=== PATIENT | male | born 1950 | race Caucasian/White ===

== ENCOUNTER → 2019-03-30 | Day surgery (SDC) | payer MEDICARE, OTHER ==
--- NOTE | 2019-03-22 18:02 | Diagnostic Imaging Report ---
EXAMINATION: CHEST 2 VIEWS INDICATION: ^PRE ADMIT COMPARISON: None FINDINGS: PA and lateral views TUBES and LINES: None. LUNGS: Lungs are well inflated. There is no evidence of pneumonia or pulmonary edema. PLEURA: No pleural effusion or pneumothorax. HEART AND MEDIASTINUM: The cardiomediastinal silhouette is unremarkable. BONES AND SOFT TISSUES: No acute osseous lesion. Soft tissues are unremarkable. UPPER ABDOMEN: No free air under the diaphragm. IMPRESSION: No acute thoracic abnormality. Signed by: Dr. David Clements MD on 03/22/2019 5:59 PM
[2019-03-22 18:26] LABS: BASOPHILS % 0.1 % (0.0-1.0); EOSINOPHILS % 0.4 % (0.0-6.0); HEMATOCRIT 36.4 % (38.2-49.6); HEMOGLOBIN 12.5 g/dL (14.0-18.0); LYMPHOCYTES % 12.6 % (18.0-39.1); MEAN CORPUSCULAR HEMOGLOBIN 32.7 pg (28-32); MEAN CORPUSCULAR HGB CONC 34.3 g/dL (31-35); MEAN CORPUSCULAR VOLUME 95.3 fL (81-99); MONOCYTES # (AUTO) 0.5 (0.2-0.8); MONOCYTES % 5.7 % (4.4-11.3); NEUTROPHILS # (AUTO) 6.6 (2.1-6.9); NEUTROPHILS % 81.1 % (38.7-80.0); PLATELET COUNT 206 x10e3/uL (140-360); RED BLOOD COUNT 3.82 x10e6/uL (4.3-5.7); RED CELL DISTRIBUTION WIDTH 13.3 % (11.7-14.4)
[~2019-03-30] MED LIST: ACYCLOVIR200 MG PO; AZOR 10-40 MG1 EACH; BUPIVACAINE HCL 0.5% INJ 30 ML VIAL INJ ONE; CEFAZOLIN SOD 1 GM/NS 50ML 50 ML IV ONE; CLONIDINE HCL0.2 MG; COREG12.5 MG PO; DEXAMETHASONE SOD PHOS INJ 4 MG/ML VIAL ONE; FENTANYL CITRATE/PF 100MCG/2 ML INJ ONE; FERROUS SULFAT325 M1; FLOMAX0.4 MG PO; GLYCOPYRROLATE INJ 1MG/ 5 ML SYR ONE; KLOR CON; LIDOCAINE HCL 2% LOCAL INJ 5 ML SDV VIAL INJ ONE; LYRICA75 MG; MIDAZOLAM HCL 2 MG/2 ML VIAL ONE; MONTELUKAST SOD10 MG PO; MUPIROCIN 2% OINT 22 GM TUBE ONE; NEXIUM40 MG; NORCO 10-325 T1 EACH; ONDANSETRON HCL INJ 2MG/ML 2ML 2 MG/ML VIAL ONE; PREDNISONE10 MG PO; PROPOFOL IV EMULSION 10 MG/ML 20 ML VIAL ONE; SEVOFLURANE INHAL SOLN 250 ML PEN BTL ONE; SIMVASTATIN20 MG PO
--- OUTSIDE RECORDS SUMMARY | 2019-03-30 05:15 | XMS REPORT ---
Author Author [facility] Address Unknown Phone Unavailable Care Team Providers Care Termite Control Representative Name Role Phone JAZMIN MEDRANO Unavailable Unavailable Problems This patient has no known problems. Allergies, Adverse Reactions, Alerts This patient has no known allergies or adverse reactions. Medications This patient has no known medications. Results Test Description Test Time Test Comments Text Results Atomic Results Result Comments CHEST 2 VIEWS 2019-03-22 17:58:00 [place] [address] Patient Name: ROSELYN SNIDER MR #: [id number] : 1950 Age/Sex: 68/M Req #: [id number] Adm Physician: Ordered by: JAZMIN MEDRANO MD Report #: [id number] Location: OR Room/Bed: Procedure: [id number] DX/CHEST 2 VIEWS Exam Date: Exam Time: REPORT STATUS: Signed EXAMINATION: CHEST 2 VIEWS INDICATION: PRE ADMIT C OMPARISON: None FINDINGS: PA and lateral views TUBES and LINES: None. LUNGS: Lungs are well inflated. There is no evidence of pneumonia or pulmonary edema. PLEURA: No pleural effusion or pneumothorax. HEART AND MEDIASTINUM: The cardiomediastinal silhouette is unremarkable. BONES AND SOFT TISSUES: No acute osseous lesion. Soft tissues are unremarkable. UPPER ABDOMEN: No free air under the diaphragm. IMPRESSION: No acute thoracic abnormality. Signed by: Dr. David Barber MD on 03/22/2019 5:59 PM Dictated By: DAVID BARBER MD 58 Transcribed By: HELEN on 03/22/191758 COPY TO: JAZMIN MEDRANO MD
[2019-03-30 08:54] VITALS: BP 143/72
--- NOTE | 2019-03-30 16:03 | Operative Report ---
DATE OF PROCEDURE: 03/30/2019 SURGEON: Gary Anders MD PREOPERATIVE DIAGNOSES: 1. Displacement of internal fixation device of left hand. 2. Left thumb trigger. 3. Left index trigger. POSTOPERATIVE DIAGNOSES: 1. Displacement of internal fixation device of left hand. 2. Left thumb trigger. 3. Left index trigger. PROCEDURES: 1. Removal of internal fixation device of left hand. 2. Left thumb tenovaginotomy. 3. Left index finger tenovaginotomy. ANESTHESIA: General. HISTORY: The patient is a 68-year-old right-hand dominant male, who approximately 5-6 years ago underwent arthroplasty of the left CMC joint with an implant arthroplasty. The implant has become displaced dorsally and is now extruding from the CMC joint and causing pain and discomfort. 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 The risks, benefits, and alternatives of surgery were discussed with the patient. He is prepared to undergo the procedures outlined. PROCEDURE IN DETAIL: The patient was marked preoperatively in the holding area. He was brought to the operating theater. After the induction of adequate general anesthesia, he was prepped and draped in a supine position. Time-out was performed. An incision corresponding to the previous CMC arthroplasty was marked out over the area where the implant is displaced. A transverse incision was marked out over the A1 halima of the left thumb and the left index finger and an oblique incision was marked out. The left upper extremity was exsanguinated and the tourniquet was inflated to a pressure of 250 mmHg. The incision over the implant was made through the skin and subcutaneous tissues and venous tributaries were controlled with the bipolar cautery. The implant was located deep to the capsule of the dorsal aspect of the CMC joint. The capsule was incised and then the implant was removed in total. The joint was irrigated with copious amounts of bacteriostatic saline. The capsule was closed with 4-0 Vicryl in an interrupted [id number] fashion. The wound was irrigated again and the skin was approximated with 5-0 nylon in an interrupted horizontal mattress fashion. A transverse incision of the thumb was made over the A1 halima on the volar aspect of the MP joint. The incision was made through the skin and subcutaneous tissue and venous tributaries were controlled with the bipolar cautery. Blunt dissection was used to identify both the radial and the ulnar digital nerves. They were retracted away from the flexor tendon sheath and protected and preserved. The A1 halima was incised longitudinally taking care to protect and preserve the FPL tendon. Once the complete length of the halima had been transected, the tendon was placed through a range of motion and there was noted to be good gliding and no locking. The wound was irrigated with bacteriostatic saline and closed with a 5-0 nylon in interrupted horizontal mattress fashion. The incision over the A1 halima of the left index finger was made through the skin and subcutaneous tissues and all venous tributaries were controlled with the bipolar cautery. Blunt dissection was used to open the wound and identify both the radial and the ulnar digital neurovascular bundles. They were retracted away from the flexor tendon sheath and the thickened A1 halima was then incised longitudinally taking care to protect and preserve the flexor tendons within the sheath. Once the Newman had been incised throughout its entire length, tendons were placed through a range of motion and there was good gliding and no locking. The wound was irrigated with bacteriostatic saline and closed with a 5-0 nylon in an interrupted horizontal mattress fashion. A Marcaine field block with 0.5% Marcaine was done at all three operative sites. The tourniquet was deflated, the fingers pinked up nicely and a sterile bulky and foamy bandage was applied. The patient tolerated the procedure well, was brought to recovery room in satisfactory condition and discharged with a postoperative instruction sheet as well as a followup appointment. MD ACE Lara/JES /[id number]
== END | disposition home or self-care (01) ==
LOC: OR 05:13
PROVIDERS: ATTEND Plastic Surgery
DX: M65.312 Trigger thumb, left thumb (principal); M65.322 Trigger finger, left index finger; T84.220A Displacement of internal fixation device of bones of hand and fingers, initial encounter; M43.9 Deforming dorsopathy, unspecified; I10 Essential (primary) hypertension; K21.9 Gastro-esophageal reflux disease without esophagitis; Y83.8 Other surgical procedures as the cause of abnormal reaction of the patient, or of later complication, without mention of misadventure at the time of the procedure; Z01.810 Encounter for preprocedural cardiovascular examination; Z01.812 Encounter for preprocedural laboratory examination; Z01.818 Encounter for other preprocedural examination
CPT/HCPCS: 26055 ×2; 26320; 36415; 71046; 85025; 93005; J0690; J1100; J2001; J2250; J2405; J2704; J3490

== ENCOUNTER → 2019-08-02 | Day surgery (SDC) | payer MEDICARE, OTHER ==
[2019-07-27 15:33] LABS: BASOPHILS % 0.5 % (0.0-1.0); EOSINOPHILS # (AUTO) 0.1 (0.0-0.4); HEMATOCRIT 35.3 % (38.2-49.6); HEMOGLOBIN 12.2 g/dL (14.0-18.0); LYMPHOCYTES # (AUTO) 1.5 (1.0-3.2); LYMPHOCYTES % 38.4 % (18.0-39.1); MEAN CORPUSCULAR HEMOGLOBIN 32.4 pg (28-32); MEAN CORPUSCULAR HGB CONC 34.6 g/dL (31-35); MEAN CORPUSCULAR VOLUME 93.6 fL (81-99); MONOCYTES # (AUTO) 0.4 (0.2-0.8); MONOCYTES % 8.8 % (4.4-11.3); NEUTROPHILS % 50.3 % (38.7-80.0); PLATELET COUNT 166 x10e3/uL (140-360); RED BLOOD COUNT 3.77 x10e6/uL (4.3-5.7); RED CELL DISTRIBUTION WIDTH 12.8 % (11.7-14.4)
--- NOTE | 2019-07-27 15:41 | Diagnostic Imaging Report ---
Chest, 2 views, 07/27/2019. History: Preop, knee surgery. Comparison: None available. Findings: The cardiomediastinal silhouette and pulmonary vasculature are within normal limits. There is tortuosity of the descending thoracic aorta. The lungs are clear without evidence of consolidation or pleural effusion. There are no acute osseous or soft tissue abnormalities. Impression: No acute cardiopulmonary abnormality. Signed by: Toby Paulino on 07/27/2019 3:38 PM
[~2019-08-02] MED LIST changes: +ACETAMINOPHEN 1000 MG/100 ML 100 ML IV ONE; +BUPIVACAINE 0.25% 30ML SDV INJ ONE; -BUPIVACAINE HCL 0.5% INJ 30 ML VIAL INJ ONE; +CEFAZOLIN SOD 1 GM/NS 50ML 100 ML IV ONE; -CEFAZOLIN SOD 1 GM/NS 50ML 50 ML IV ONE; +EPHEDRINE SULFATE INJ 50 MG/10 ML SYR ONE; -FERROUS SULFAT325 M1; +FERROUS SULFAT325 M1 PO; +LIDOCAINE 1% W/EPINEPHRINE 20 ML VIAL ONE; -LYRICA75 MG; +LYRICA75 MG PO; -MIDAZOLAM HCL 2 MG/2 ML VIAL ONE; -MUPIROCIN 2% OINT 22 GM TUBE ONE; +NORCO 10-325 T1 EACH PO
--- OUTSIDE RECORDS SUMMARY | 2019-08-02 07:10 | XMS REPORT | Clinical Summary ---
Author Author [facility] Address Unknown Phone Unavailable Care Team Providers Care Laborer Brush Clearing Name Role Phone Juve Burnett MD PCP Allergies Not on File Medications Not on file Active Problems Not on file Encounters Care Team Description Date Type Specialty Georgiana Perry DO Acute medial meniscus tear of left knee, initial encounter (Primary Dx) 05/14/2019 Transcribe Access Orders after 08/01/2018 Immunizations Name Administration Dates Next Due Influenza Whole 07/19/2017 Social History Date Tobacco Use Types Packs/Day Years Used Never Assessed Sex Assigned at Date Recorded Not on file Industry Job Start Date Occupation Not on file Not on file Not on file Travel End Travel History Travel Start No recent travel history available. Last Filed Vital Signs Not on file Plan of Treatment Health Maintenance Due Date Last Done Comments COLONOSCOPY SCREENING 2001 SHINGLES VACCINES (#1) 2001 65+ PNEUMOCOCCAL VACCINE 2016 (1 of 2 - PCV13) INFLUENZA VACCINE 06/17/2019 07/19/2017 Procedures Comments Procedure Name Priority Date/Time Associated Diagnosis MRI KNEE WO CONTRAST LEFT Routine 05/17/2019 Acute medial meniscus 4:38 PM CDT tear of left knee, initial encounter after 08/01/2018 Results * MRI Knee Left Wo Contrast (05/17/2019 4:38 PM CDT) Specimen Narrative Performed At [facility] EXAMINATION:MRI KNEE WO CONTRAST LEFT CLINICAL HISTORY:S83.242A Other tear of medial meniscuscurrent injuryleft kneeinitial encounter, LT KNEE MEDIAL MENISCUS TEAR TECHNIQUE:Multiplanar multisequence MR imaging of the knee was performed without contrast. COMPARISON:None FINDINGS: Cruciate ligaments: Degeneration of the ACL and PCL. Collateral ligaments: Sprain of the deep MCL. Edema also extends along the posterior oblique ligament with adjacent cyst formation. Fibular collateral ligament, biceps femoris and IT band are intact. Medial Meniscus: Complex tear involving the body and posterior horn medial meniscus with mild peripheral extrusion by approximately 4 mm, and parameniscal cyst formation. Medial Compartment Cartilage: Diffusely thinned. Lateral Meniscus: Complex tear involving the anterior horn, body and posterior horn lateral meniscus with para and intrameniscal cyst formation Lateral Compartment Cartilage: Diffusely thinned Patellofemoral Compartment:High-grade partial-thickness cartilage loss of the medial patellar facet, multifocal areas of full-thickness fissuring involving the lateral patellar facet with subchondral edema. Trochlear cartilage is mildly thinned. Extensor mechanism: Intact. Effusion: Moderate joint effusion. Bone marrow: Focal marrow edema of the medial femoral condyle and peripheral medial tibial plateau. Patchy islands of red marrow are also seen. Soft tissues: Small Spencer's cyst. Multiseptated cysts are seen within the semimembranosus attachment to the posterior medial tibia. This could represent intratendinous cyst formation or extension of parameniscal cysts. Grade 1 strain of the medial gastrocnemius and soleus. IMPRESSION: 1.Complex medial and lateral meniscal tears with para meniscal and intrameniscal cyst formation reactive marrow edema within the peripheral medial femoral condyle and medial tibial plateau. 2.Low-grade partial tear of the deep MCL. 3.Moderate patellofemoral compartment degenerative change. 4.Small Spencer's cyst. 5.Grade 1 strain of the gastrocnemius and soleus. Additional findings as above. [facility] [id number] Procedure Note Hm Interface, Radiology Results Incoming - 05/17/2019 8:24 PM CDT EXAMINATION: MRI KNEE WO CONTRAST LEFT CLINICAL HISTORY: S83.242A Other tear of medial meniscus current injury left knee initial encounter, LT KNEE MEDIAL MENISCUS TEAR TECHNIQUE: Multiplanar multisequence MR imaging of the knee was performed without contrast. COMPARISON: None FINDINGS: Cruciate ligaments: Degeneration of the ACL and PCL. Collateral ligaments: Sprain of the deep MCL. Edema also extends along the posterior oblique ligament with adjacent cyst formation. Fibular collateral ligament, biceps femoris and IT band are intact. Medial Meniscus: Complex tear involving the body and posterior horn medial meniscus with mild peripheral extrusion by approximately 4 mm, and parameniscal cyst formation. Medial Compartment Cartilage: Diffusely thinned. Lateral Meniscus: Complex tear involving the anterior horn, body and posterior horn lateral meniscus with para and intrameniscal cyst formation Lateral Compartment Cartilage: Diffusely thinned Patellofemoral Compartment:High-grade partial-thickness cartilage loss of the medial patellar facet, multifocal areas of full-thickness fissuring involving the lateral patellar facet with subchondral edema. Trochlear cartilage is mildly thinned. Extensor mechanism: Intact. Effusion: Moderate joint effusion. Bone marrow: Focal marrow edema of the medial femoral condyle and peripheral medial tibial plateau. Patchy islands of red marrow are also seen. Soft tissues: Small Spencer's cyst. Multiseptated cysts are seen within the semimembranosus attachment to the posterior medial tibia. This could represent intratendinous cyst formation or extension of parameniscal cysts. Grade 1 strain of the medial gastrocnemius and soleus. IMPRESSION: 1. Complex medial and lateral meniscal tears with para meniscal and intrameniscal cyst formation reactive marrow edema within the peripheral medial femoral condyle and medial tibial plateau. 2. Low-grade partial tear of the deep MCL. 3. Moderate patellofemoral compartment degenerative change. 4. Small Spencer's cyst. 5. Grade 1 strain of the gastrocnemius and soleus. Additional findings as above. [facility] [id number] Performing Organization Address City/State/Zipcode Phone Number [facility] [address] [place] [address] after 08/01/2018 Insurance Type Payer Benefit Subscriber ID Effective Phone Address Plan / Dates Group Indemnity AETNA AETNA xxxxxxxxxx 1993-P [facility] resent RE INDEMNITY Medicare MEDICARE MEDICARE xxxxxxxxxxx 2016-P [facility] PART A AND resent [place] B
[2019-08-02 10:32] VITALS: BP 130/71
--- NOTE | 2019-08-02 21:38 | NUR ---
ORTHOPEDICS OPERATIVE NOTE DATE OF SURGERY: 08/02/19 PREOPERATIVE DIAGNOSES: Left Knee Medial & Lateral Meniscus Tear POSTOPERATIVE DIAGNOSES: Left Knee Medial & Lateral Meniscus Tear PROCEDURE: Right/Left Knee Arthroscopic Partial Medial and Lateral Meniscectomy, Chondroplasty, and Partial Synovectomy SURGEON: Georgiana Perry DO VP CARDIOVASCULAR: None ANESTHESIA: General COMPLICATIONS: None TOURNIQUET: Applied but not inflated. No tourniquet EBL: Minimal INDICATIONS: Due to persistent pain and limitations on activity combined with findings on exam and imaging, the patient requests surgical treatment. Nonopera tive care and alternative surgical options were reviewed. We agreed that this provided the best risk/benefit profile for this patient, understanding and accepting risks of recurrent/persistent symptoms, infection, bleeding, stiffness, neurological/vascular damage, failure to improve and anesthetic complication (as reviewed by anesthesia service). Also, the patient understands that arthroscopic treatment of articular cartilage lesions provides temporary incomplete relief but that meniscal symptoms should be well addressed. FINDINGS: LEFT Knee Patella Grade 2 - 4, with grade 4 on the superior portion of the patella Trochlea - Grade 2 central portion Lateral Gutter Normal Medial Gutter Normal Medial Compartment Femoral - Grade 2 Tibial - Grade 1 Medial Meniscus - Complex tear of body and posterior horn Cruciate region - Normal Lateral Compartment Femoral - Grade 2 Chondromalacia Tibial - Grade 2 Lateral Meniscus - Horizontal tear of body and posterior horn Synovium - Hypertrophic and hyperemic PROCEDURE: With the patient in the supine position with all prominences well padded, general anesthesia was obtained. Sterile prepping and draping were performed. Antibiotics had been given and a time out performed. After an injection of 1% Lidocaine with Epinephrine in the proposed incision sites, The arthroscope was i nserted via a small lateral parapatellar tendon incision into the patellofemoral space. Under direct visualization, a medial parapatellar tendon portal was created providing a working portal. Diagnostic arthroscopy was performed and the above findings were noted. Within the patellofemoral space, Patella Grade 2 - 4, with grade 4 on the superior portion of the patella with opposing Trochlea - Grade 2 central portion Within the medial compartment, the medial meniscus was debrided to establish a well-balanced rim, removing approximately 70% of the posterior horn of the medial meniscus. A stable border was created. There was grade 2 chondromalacia, which was debrided to stable borders. Within the intercondylar space, the ACL was visualized and intact The lateral compartment demonstrated a friable and frayed horizontal lateral meniscus with grade 2-3 chondromalacia. This was debrided with an arthroscopic shaver to a stable border with 70% of the meniscus remaining. Chondroplasty was performed on the trochlea to provide a stable border. The joint was extravasated and .25% marcaine was injected into the knee. The incisions were closed and more local was injected around the portal sites. Steristrips, Xeroform, 4x4s, ABDs and a compressive KEVIN bandage were applied. The patient was awakened and transferred to the PACU in satisfactory condition having tolerated the procedure well.
== END | disposition home or self-care (01) ==
LOC: OR 06:52
PROVIDERS: ATTEND Orthopaedic Surgery
DX: S83.232A Complex tear of medial meniscus, current injury, left knee, initial encounter (principal); S83.272A Complex tear of lateral meniscus, current injury, left knee, initial encounter; M22.42 Chondromalacia patellae, left knee; S83.412A Sprain of medial collateral ligament of left knee, initial encounter; M67.262 Synovial hypertrophy, not elsewhere classified, left lower leg; I10 Essential (primary) hypertension; K21.9 Gastro-esophageal reflux disease without esophagitis; N40.0 Benign prostatic hyperplasia without lower urinary tract symptoms; J30.2 Other seasonal allergic rhinitis; I49.1 Atrial premature depolarization; E78.5 Hyperlipidemia, unspecified; X58.XXXA Exposure to other specified factors, initial encounter; Z01.810 Encounter for preprocedural cardiovascular examination; Z01.812 Encounter for preprocedural laboratory examination; Z01.818 Encounter for other preprocedural examination
CPT/HCPCS: 29880; 36415; 71046; 85025; 93005; J0131; J0690; J1100; J2001; J2405; J2704; J3010; J3490

== ENCOUNTER → 2020-04-21 | Day surgery (SDC) | payer MEDICARE, OTHER ==
[2020-04-18 13:42] LABS: BASOPHILS % 0.9 % (0.0-1.0); EOSINOPHILS # (AUTO) 0.1 (0.0-0.4); EOSINOPHILS % 1.9 % (0.0-6.0); HEMATOCRIT 35.4 % (38.2-49.6); HEMOGLOBIN 11.7 g/dL (14.0-18.0); LYMPHOCYTES # (AUTO) 1.2 (1.0-3.2); MEAN CORPUSCULAR HEMOGLOBIN 32.1 pg (28-32); MEAN CORPUSCULAR HGB CONC 33.1 g/dL (31-35); MONOCYTES # (AUTO) 0.2 (0.2-0.8); MONOCYTES % 7.4 % (4.4-11.3); NEUTROPHILS # (AUTO) 1.7 (2.1-6.9); NEUTROPHILS % 51.8 % (38.7-80.0); PLATELET COUNT 146 x10e3/uL (140-360); RED BLOOD COUNT 3.65 x10e6/uL (4.3-5.7); RED CELL DISTRIBUTION WIDTH 12.6 % (11.7-14.4)
[~2020-04-21] MED LIST changes: -ACETAMINOPHEN 1000 MG/100 ML 100 ML IV ONE; -CEFAZOLIN SOD 1 GM/NS 50ML 100 ML IV ONE; +CLONIDINE HCL0.1 MG PO; +CLONIDINE HCL0.3 MG PO; -EPHEDRINE SULFATE INJ 50 MG/10 ML SYR ONE; +ETOMIDATE 2 MG/ML 10 ML INJ IV ONE; -FENTANYL CITRATE/PF 100MCG/2 ML INJ ONE; +GLYCOPYRROLATE INJ 0.2 MG/ML VIAL ONE; -GLYCOPYRROLATE INJ 1MG/ 5 ML SYR ONE; +KETOROLAC TROMETHAMINE 30 MG/ML VIAL ONE; -KLOR CON; +KLOR CON PO; +METOCLOPRAMIDE HCL 10 MG/2ML VIAL ONE; -PROPOFOL IV EMULSION 10 MG/ML 20 ML VIAL ONE
[2020-04-21 13:05] VITALS: BP 147/70
--- NOTE | 2020-04-21 15:10 | NUR ---
ORTHOPEDICS OPERATIVE NOTE PREOPERATIVE DIAGNOSES: Right Knee Medial & Lateral Meniscus Tear POSTOPERATIVE DIAGNOSES: Right Knee Medial & Lateral Meniscus Tear, Chondromalacia of Medial Femoral Condyle, Tibial Plateau, Trochlea, Lateral Plateau, Synovitis, Impinging Plica PROCEDURE: Right Knee Arthroscopic Partial Medial and Lateral Meniscectomy, Tricompartmental Chondroplasty, and Tricompartmental Partial Synovectomy, Exicision of Plica SURGEON: Georgiana Perry DO ANESTHESIA: General COMPLICATIONS: None TOURNIQUET: 8 min EBL: Minimal INDICATIONS: Due to persistent pain and limitations on activity combined with findings on exam and imaging, the patient requests surgical treatment. Nonopera tive care and alternative surgical options were reviewed. We agreed that this provided the best risk/benefit profile for this patient, understanding and accepting risks of recurrent/persistent symptoms, infection, bleeding, stiffness, neurological/vascular damage, failure to improve and anesthetic complication (as reviewed by anesthesia service). Also, the patient understands that arthroscopic treatment of articular cartilage lesions provides temporary incomplete relief but that meniscal symptoms should be well addressed. FINDINGS: Patella Grade 4 Trochlea - Grade 2-3 Lateral Gutter Normal Medial Gutter Normal Medial Compartment Femoral - Grade 2-3 Chondromalaica Tibial - Grade 2 Chondromalacia Medial Meniscus - Complex Posterior horn meniscus tear Cruciate region - Intact Lateral Compartment Femoral - Grade 2 Chondromalaica Tibial - Grade 2 Chondromalacia Lateral Meniscus - Complex body meniscus tear Synovium - tricompartmental synovitis, and impinging plica PROCEDURE: With the patient in the supine position with all prominences well padded, general anesthesia was obtained. Sterile prepping and draping were performed. Antibiotics had been given and a time out performed. After an injection of 1% Lidocaine with Epinephrine in the proposed incision sites, The arthroscope was i nserted via a small lateral parapatellar tendon incision into the patellofemoral space. Under direct visualization, a medial parapatellar tendon portal was created providing a working portal. Diagnostic arthroscopy was performed and the above findings were noted. Within the patellofemoral space, chondroplasty of the patella and trochlea were performed. Excision of impinging Plica was performed with a shaver. Within the medial compartment, the medial meniscus was debrided to establish a well-balanced rim, removing approximately 60% of the posterior horn of the medial meniscus. A stable border was created. There was grade 2-3 chondromalacia, which was debrided to stable borders. Within the intercondylar space, the ACL was visualized and intact The lateral compartment demonstrated a friable and frayed lateral meniscus with grade 2-3 chondromalacia. This was debrided with an arthroscopic shaver to a st able border with 50% of the meniscus remaining. Chondroplasty was performed on the trochlea to provide a stable border. The joint was extravasated and .25% marcaine was injected into the knee. The incisions were closed and more local was injected around the portal sites. Steristrips, Xeroform, 4x4s, ABDs and a compressive KEVIN bandage were applied. The patient was awakened and transferred to the PACU in satisfactory condition having tolerated the procedure well.
== END | disposition home or self-care (01) ==
LOC: OR 08:54
PROVIDERS: ATTEND Orthopaedic Surgery
DX: S83.231A Complex tear of medial meniscus, current injury, right knee, initial encounter (principal); S83.271A Complex tear of lateral meniscus, current injury, right knee, initial encounter; M19.071 Primary osteoarthritis, right ankle and foot; M94.261 Chondromalacia, right knee; M65.9 Synovitis and tenosynovitis, unspecified; M67.51 Plica syndrome, right knee; I10 Essential (primary) hypertension; K21.9 Gastro-esophageal reflux disease without esophagitis; X58.XXXA Exposure to other specified factors, initial encounter; Z01.810 Encounter for preprocedural cardiovascular examination; Z01.812 Encounter for preprocedural laboratory examination; Z11.59 Encounter for screening for other viral diseases
CPT/HCPCS: 29880; 36415; 85025; 87635; 93005; J1100; J1885; J2001; J2405; J2765